=== PATIENT | male | born 1980 | race Caucasian/White ===

== ENCOUNTER 2017-10-25 11:08 | Emergency (ER) | payer MEDICAID ==
[~2017-10-25] VITALS: Ht 175.3 cm; Wt 68.0 kg
[2017-10-25 11:11] VITALS: BP 143/68; PULSE 109; RESP 17; TEMP 98; O2SAT 98
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
[2017-10-25] MEDS ORDERED: IBUP1TAB7 PO (11:45)
[2017-10-25] MEDS ORDERED: TRAM50TA PO (11:45)
== END 2017-10-25 12:19 | disposition home or self-care (01) ==
LOC: NEPE 11:08
DX: R07.81 Pleurodynia (principal); Z72.0 Tobacco use
CPT/HCPCS: 71046; 99283